=== PATIENT | male | born 1935 | race Caucasian/White ===

== ENCOUNTER 2017-10-05 23:13 | Emergency (ER) | payer MEDICARE, BC ==
[~2017-10-05] VITALS: Ht 190.5 cm; Wt 95.3 kg
[2017-10-05] MEDS ORDERED: METOPROLOL SUCC50 MG PO (23:40)
[2017-10-05] MEDS ORDERED: CLOPIDOGREL75 MG PO (23:40)
[2017-10-05] MEDS ORDERED: GLIMEPIRIDE2 MG PO (23:40)
[2017-10-05] MEDS ORDERED: SYNTHROID100 MCG PO (23:40)
[2017-10-05] MEDS ORDERED: HYDROCHLOROTHIA25 MG (23:40)
[2017-10-05] MEDS ORDERED: AMIODARONE HCL200 MG (23:40)
[2017-10-05] MEDS ORDERED: LISINOPRIL10 MG PO (23:40)
[2017-10-05] MEDS ORDERED: SIMVASTATIN20 MG PO (23:40)
[2017-10-06] MEDS ORDERED: FLOMAX0.4 MG PO (00:35)
[2017-10-06] MEDS ORDERED: KEFLEX500 MG PO (00:35)
== END 2017-10-06 00:41 | disposition home or self-care (01) ==
LOC: FSED 23:13
DX: N30.91 Cystitis, unspecified with hematuria (principal); I10 Essential (primary) hypertension; E11.9 Type 2 diabetes mellitus without complications
CPT/HCPCS: 81003; 99282

== ENCOUNTER 2019-11-07 06:31 | Emergency (ER) | payer MEDICARE, BC ==
[~2019-11-07] VITALS: Ht 188 cm; Wt 83.9 kg
[~2019-11-07 06:31] MED LIST: AMIODARONE HCL200 MG; CLOPIDOGREL75 MG PO; FLOMAX0.4 MG PO; GLIMEPIRIDE2 MG PO; HYDROCHLOROTHIA25 MG; KEFLEX500 MG PO; LISINOPRIL10 MG PO; METOPROLOL SUCC50 MG PO; SIMVASTATIN20 MG PO; SYNTHROID100 MCG PO
--- NOTE | 2019-11-07 07:11 | Emergency Department Note ---
History of Present Illnes History of Present Illness Chief Complaint: Genitourinary History of Present Illness This is a 84 year old male with dysuria . Historian: Patient Arrival Mode: Car Onset (how long ago): day(s) (2) Location: suprapubic Quality: burning Radiation: non-radiation Severity: moderate Onset quality: gradual Duration (how long): day(s) (2) Timing of current episode: constant Progression: worsening Chronicity: new Context: recent illness, recent surgery, recent immobilization, recent travel, trauma/injury, new medications, hx of DVT/PE, non-compliance w/ medications, other Relieving factors: none Exacerbating factors: none Associated symptoms: denies other symptoms Treatments prior to arrival: none Past Medical/Family History Physician Review I have reviewed the patient's past medical and family history. Any updates have been documented here. Past Medical History Recent Fever: No Clinical Suspicion of Infectio: No New/Unexplained Change in Ment: No Past Medical History: Hypertension, Hypothyroidism, CAD Other Medical History: hyperlipidemia Past Surgical History: CABG Other Surgery: OPEN HEART BYPASS Social History Smoking Cessation: Never Smoker Alcohol Use: None Any Illegal Drug Use: No TB Exposure/Symptoms: No Physically hurt or threatened: No Other Last Tetanus: unknown Any Pre-Existing Lines (PICC,: No Is patient up to date on immun: No Last Flu: 03/06 Last Pneumovax: 03/06 Review of Systems Review of Systems Constitutional: no symptoms EENTM: no symptoms Cardiovascular: no symptoms Respiratory: no symptoms Gastrointestinal: no symptoms, as per HPI Genitourinary: no symptoms Musculoskeletal: no symptoms Neurological: no symptoms Psychological: no symptoms Endocrine: no symptoms Hematological/Lymphatic: no symptoms Review of other systems All other systems reviewed and negative. Physical Exam Related Data Allergies: Coded Allergies: No Known Allergies (Unverified , 11/07/19) Triage Vital Signs Vital Signs Date Time Temp Pulse Resp B/P (MAP) Pulse Ox O2 Delivery O2 Flow Rate FiO2 11/07/19 06:40 96.1 64 18 131/59 93 Vital signs reviewed: Yes Physical Exam CONSTITUTIONAL Constitutional: well-developed, well-nourished HENT HENT: normocephalic, atraumatic, oropharynx clear/moist, nose normal HENT L/R: left ext ear normal, right ext ear normal EYES Eyes: PERRL, conjunctivae normal NECK Neck: ROM normal PULMONARY Pulmonary: effort normal, breath sounds normal CARDIOVASCULAR Cardiovascular: regular rhythm, heart sounds normal, capillary refill normal, normal rate GASTROINTESTINAL Abdominal: soft, nontender, bowel sounds normal GENITOURINARY Genitourinary: exam deferred SKIN Skin: warm, dry MUSCULOSKELETAL Musculoskeletal: ROM normal NEUROLOGICAL Neurological: alert, oriented x 3, no gross motor or sensory deficits PSYCHOLOGICAL Psychological: mood/affect normal, judgement normal Results Laboratory Lab results reviewed: Yes Critical Care Time Subsequent provider I assumed direction of critical care for this patient from another provider of my specialty. Assessment & Plan Assessment & Plan Final Impression: (1) Cystitis, acute Assessment & Plan macrobid Last Vital Signs Date Time Temp Pulse Resp B/P (MAP) Pulse Ox O2 Delivery O2 Flow Rate FiO2 11/07/19 06:40 96.1 64 18 131/59 93 Home Meds Active Scripts Tamsulosin Hcl* (FLOMAX*) 0.4 Mg Cap, 0.4 MG PO DAILY, #30 CAP 0 Refills Prov:VIRGIE SANDHU MD 10/06/17 Cephalexin Monohydrate (KEFLEX) 500 Mg Capsule, 500 MG PO BID for 10 Days, #20 TAB 0 Refills Prov:VIRGIE SANDHU MD 10/06/17 Reported Medications Levothyroxine Sodium (SYNTHROID) 100 Mcg Tab, 100 MCG PO 0600, #30 TAB 10/05/17 Clopidogrel Bisulfate (CLOPIDOGREL) 75 Mg Tablet, 75 MG PO DAILY, #30 TAB 10/05/17 Amiodarone Hcl (AMIODARONE HCL) 200 Mg Tablet 10/05/17 Simvastatin (SIMVASTATIN) 20 Mg Tablet, 10 MG PO 2100, EA 10/05/17 Hydrochlorothiazide (HYDROCHLOROTHIAZIDE) 25 Mg Tablet, 25 MG DAILY, #30 TAB 10/05/17 Lisinopril (LISINOPRIL) 10 Mg Tablet, 20 MG PO DAILY, #30 TAB 10/05/17 Metoprolol Succinate (METOPROLOL SUCCINATE) 50 Mg Tab.er.24h, 50 MG PO DAILY, MG 10/05/17 Glimepiride (GLIMEPIRIDE) 2 Mg Tablet, 2 MG PO, TAB 10/05/17 KIMBERLY KHAN MD November 07, 2019 07:11
== END 2019-11-07 07:28 | disposition home or self-care (01) ==
LOC: FSED 06:31
DX: R30.0 Dysuria (principal); N30.00 Acute cystitis without hematuria; I10 Essential (primary) hypertension; I25.10 Atherosclerotic heart disease of native coronary artery without angina pectoris; E78.5 Hyperlipidemia, unspecified; E03.9 Hypothyroidism, unspecified; Z95.1 Presence of aortocoronary bypass graft
CPT/HCPCS: 81003; 99283

== ENCOUNTER 2022-01-05 19:11 | Emergency (ER) | payer MEDICARE, BC ==
[~2022-01-05] VITALS: Ht 188 cm; Wt 83.9 kg
[2022-01-05] MEDS ORDERED: CEPHALEXIN500 MG PO (19:58)
[2022-01-05] MEDS ORDERED: CEFTRIAXONE 1 GM VIAL ONE (19:59)
== END 2022-01-05 21:02 | disposition home or self-care (01) ==
LOC: FSED 19:21
DX: R30.0 Dysuria (principal); N30.00 Acute cystitis without hematuria; I10 Essential (primary) hypertension; E03.9 Hypothyroidism, unspecified; E78.5 Hyperlipidemia, unspecified; I25.10 Atherosclerotic heart disease of native coronary artery without angina pectoris; Z95.1 Presence of aortocoronary bypass graft
CPT/HCPCS: 99282; J0696